=== PATIENT | male | born 1960 | race Caucasian/White ===

== ENCOUNTER 2018-02-16 03:46 | Observation (INO) ==
[2018-02-16] MEDS ORDERED: Morphine Inj 4 MG/ML Vial IV.PUSH ONE (03:49)
--- NOTE | 2018-02-16 04:02 | ED ---
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 Emigdio Aly. Primary care doctor is Dr. robert mccain. The patient states that he has had 11 stents to his heart. And that at approximately 2:30 in the morning he felt substernal chest pressure that radiated towards his left shoulder, and he rated at 10 out of 10, he took his own nitro Xanax and call 911. EMS upon arrival gave the patient additional nitro which decreased the pain down to currently which is 1 out of 10. MD complaint: chest pain Complete Quality Measures for STEMI Alert Patients STEMI Alert: No Onset (ago): hour(s) (2) Duration: improved Onset: during rest Pain location: substernal Severity: severe Severity scale (1-10): 10 (Initially rated at 10, currently rated a 1 out of 10) Quality: tightness and heaviness Pain radiation: LUE Relieving factors: nitroglycerin Exacerbating factors: nothing Treatments prior to arrival chest pain: aspirin and nitroglycerin Related Data Home Medications Medication Instructions Recorded Confirmed amlodipine 5 mg PO DAILY 02/16/18 02/16/18 atorvastatin 80 mg PO DAILY 02/16/18 02/16/18 clopidogrel 75 mg PO DAILY 02/16/18 02/16/18 lamotrigine 100 mg PO BID 02/16/18 02/16/18 lorazepam 0.5 mg PO PRN PRN 02/16/18 02/16/18 metoprolol succinate 50 mg PO DAILY 02/16/18 02/16/18 omeprazole 20 mg PO DAILY 02/16/18 02/16/18 quetiapine 100 mg PO BID 02/16/18 02/16/18 ticagrelor [Brilinta] 90 mg PO BID 02/16/18 02/16/18 Allergies Allergy/AdvReac Type Severity Reaction Status Date / Time No Known Allergies Allergy Unverified 02/16/18 03:50 Review of Systems ROS: all other systems reviewed are negative PMFSH History History Provided By: Patient Medical History Medical History Anxiety (Acute) HTN (hypertension) (Acute) Surgical History Surgical History Hx of heart artery stent (Acute) Social History Social History Substance History: No History of Abuse Smoking Status: Current some day smoker Tobacco Type: Cigarettes How Often Do You Have a Drink Containing Alcohol: Monthly or less Recent Travel in [facility] within the Last 8 Weeks: No Recent Out of Country Travel within the Last 8 Weeks: No Exam Narrative Exam Narrative: GENERAL: Well-nourished, well-developed patient in no apparent distress. SKIN: Warm and dry. HEAD: Atraumatic. Normocephalic. EYES: Pupils equal and round. No scleral icterus. No injection or drainage. ENT: No nasal bleeding or discharge. Mucous membranes pink and moist. NECK: Trachea midline. No JVD. CARDIOVASCULAR: Regular rate and rhythm. no rubs or gallops RESPIRATORY: No accessory muscle use. Clear to auscultation. Breath sounds equal bilaterally. GASTROINTESTINAL: Abdomen soft, non-tender, nondistended. No rebound or guarding MUSCULOSKELETAL: Extremities without clubbing, cyanosis, or edema. No obvious deformities. NEUROLOGICAL: Awake and alert. No obvious cranial nerve deficits. Motor grossly within normal limits. Five out of 5 muscle strength in the arms and legs. Normal speech. PSYCHIATRIC: Appropriate mood and affect; insight and judgment normal. Course Initial Documented Vital Signs Temperature 98.4 F 02/16/18 03:50 Pulse Rate 100 H 02/16/18 03:50 Respiratory Rate 20 02/16/18 03:50 Blood Pressure 135/73 02/16/18 03:50 Pulse Oximetry 98 02/16/18 03:50 Last Documented Vital Signs Temperature 98.4 F 02/16/18 03:50 Pulse Rate 100 H 02/16/18 03:50 Respiratory Rate 20 02/16/18 03:50 Blood Pressure 135/73 02/16/18 03:50 Pulse Oximetry 98 02/16/18 03:56 Medical Decision Making MDM Narrative Medical decision making narrative: No leukocytosis, no anemia, no abnormal platelet count, no left shift. First set of cardiac enzymes negative Normal electrolytes except for random glucose of 170 Normal liver and kidney functions Differential Diagnosis Differential Diagnosis: UT versus non-STEMI versus pneumonia versus pulmonary/ pleural effusion versus pneumothorax Lab Data Lab results reviewed: Yes I reviewed the patient's lab results. Result diagrams: 02/16/18 05:48 02/16/18 04:15 Lab Results 02/16/18 02/16/18 02/16/18 Range/Units 04:15 04:15 05:48 WBC 8.4 (4.0-11.0) th/mm3 RBC 4.80 (4.50-5.90) mil/mm3 Hgb 14.6 (13.0-17.0) gm/dL Hct 41.4 (39.0-51.0) % MCV 86.3 (80.0-100.0) fL MCH 30.5 (27.0-34.0) pg MCHC 35.4 (32.0-36.0) % RDW 13.5 (11.6-17.2) % Plt Count 271 (150-450) th/mm3 MPV 6.7 L (7.0-11.0) fL Neut % (Auto) 57.8 (16.0-70.0) % Lymph % (Auto) 26.0 (9.0-44.0) % [place] % (Auto) 14.0 H (0.0-8.0) % Eos % (Auto) 1.2 (0.0-4.0) % Baso % (Auto) 1.0 (0.0-2.0) % Neut # (Auto) 4.9 (1.8-7.7) th/mm3 Lymph # (Auto) 2.2 (1.0-4.8) th/mm3 [place] # (Auto) 1.2 H (0.0-0.9) th/mm3 Eos # (Auto) 0.1 (0.0-0.4) th/mm3 Baso # (Auto) 0.1 (0.0-0.2) th/mm3 WBC Differential . Differential Comment Auto diff final Sodium 140 (136-145) meq/L Potassium 3.5 (3.5-5.1) meq/L Chloride 106 (98-107) meq/L Carbon Dioxide 22.2 (21.0-32.0) meq/L Anion Gap 12 (5-15) meq/L BUN 12 (7-18) mg/dL Creatinine 1.09 (0.60-1.30) mg/dL Estimated GFR 69 L (>89) mL/min Random Glucose 170 H (74-106) mg/dL Calcium 8.8 (8.5-10.1) mg/dL Total Bilirubin 0.1 L (0.2-1.0) mg/dL AST 17 (15-37) U/L ALT 21 (12-78) U/L Alkaline Phosphatase 77 (45-117) U/L Total Creatine Kinase 94 (39-308) U/L Troponin I Less than 0.02 L (0.02-0.05) ng/mL Total Protein 7.2 (6.4-8.2) g/dL Albumin 3.3 L (3.4-5.0) g/dL Lipase Cancelled 154 Imaging Data My impression: Personally reviewed images and radiology report Radiologist's impression: Chest X-Ray 02/16/18 03:50 CONCLUSION: Negative examination. ECG Data EKG Prior to Arrival: No Attestation: I personally reviewed and interpreted this ECG as follows: Prior ECG tracings: not available for review Interpretation: Sinus tachycardia, 101 bpm, nonspecific ST-T wave changes, no acute ST elevation UT pattern noted Discharge Plan Discharge Disposition Patient Disposition: 30 Still Patient Discharge Condition Condition: Stable Discharge Details Diagnosis: Chest pain, rule out acute myocardial infarction Physicians Team ED Provider: Marco A Camacho Primary Care Provider: Blossom Hung Attending Provider: Mukesh Taylor Status ED Status: Admitted Observation Patient
--- NOTE | 2018-02-16 04:12 | XR ---
EXAM DATE: 02/16/2018 4:09 AM EDT AGE/SEX: 57 years / Male INDICATIONS: Chest pain. CLINICAL DATA: This is the patient's initial encounter. Patient reports that signs and symptoms have been present for 1 day and indicates a pain score of 8/10. MEDICAL/SURGICAL HISTORY: . Cardiovascular disease. Hypertension. Chronic obstructive pulmonary disease. Diabetes. None. COMPARISON: [facility] [place], CHEST SINGLE AP, 06/02/2016. . FINDINGS: A single AP view of the chest demonstrates the lungs to be symmetrically aerated without evidence of mass, infiltrate or effusion. The cardiomediastinal contours are unremarkable. Osseous structures a re intact. CONCLUSION: Negative examination. Electronically signed by: Reddy Clifford MD 02/16/2018 4:10 AM EDT
[2018-02-16 04:47] LABS: Alanine Aminotransferase 21 U/L (12-78)
[2018-02-16 05:02] LABS: Albumin 3.3 g/dL (3.4-5.0); Alkaline Phosphatase 77 U/L (45-117); Anion Gap 12 meq/L (5-15); Aspartate Aminotransferase 17 U/L (15-37); Blood Urea Nitrogen 12 mg/dL (7-18); Calcium 8.8 mg/dL (8.5-10.1); Carbon Dioxide 22.2 meq/L (21.0-32.0); Chloride 106 meq/L (98-107); Creatine Kinase 94 U/L (39-308); Glomerular Filtration Rate 69 mL/min (>89); Glucose,Random 170 mg/dL (74-106); Lipase 154 U/L (73-393); Potassium 3.5 meq/L (3.5-5.1); Sodium 140 meq/L (136-145); Total Protein 7.2 g/dL (6.4-8.2)
[2018-02-16 06:04] LABS: Baso # (Auto) 0.1 th/mm3 (0.0-0.2); Eos # (Auto) 0.1 th/mm3 (0.0-0.4); Eos % (Auto) 1.2 % (0.0-4.0); Hematocrit 41.4 % (39.0-51.0); Hemoglobin 14.6 gm/dL (13.0-17.0); Lymph # (Auto) 2.2 th/mm3 (1.0-4.8); Mean Corpuscular HGB Conc 35.4 % (32.0-36.0); Mean Corpuscular Hemoglobin 30.5 pg (27.0-34.0); Mean Corpuscular Volume 86.3 fL (80.0-100.0); Mean Platelet Volume 6.7 fL (7.0-11.0); Mono # (Auto) 1.2 th/mm3 (0.0-0.9); Neut # (Auto) 4.9 th/mm3 (1.8-7.7); Neut % (Auto) 57.8 % (16.0-70.0); Platelet Count 271 th/mm3 (150-450); Red Cell Distribution Width 13.5 % (11.6-17.2); White Blood Count 8.4 th/mm3 (4.0-11.0)
[2018-02-16] MEDS ORDERED: Morphine Inj 4 MG/ML Vial IV.PUSH PRN (06:06)
[2018-02-16] MEDS ORDERED: Sod Chloride 0.9% Inj 1,000 ML IV.CONT SCH (06:15)
[2018-02-16 06:27] LABS: INR 1.1 Ratio; Prothrombin Time 10.9 sec (9.8-11.6)
[2018-02-16 06:30] LABS: Activated Partial Thrombo Time 25.5 sec (24.3-30.1); D-Dimer 0.45 mg/L FEU (0.00-0.50)
[2018-02-16 08:45] LABS: Creatine Kinase 79 U/L (39-308)
[2018-02-16] MEDS ORDERED: Pantoprazole Sodium 20 MG DR Tablet PO SCH (09:00)
[2018-02-16] MEDS ORDERED: lamoTRIgine 100 MG Tablet PO SCH (09:00)
[2018-02-16] MEDS ORDERED: amLODIPine 5 MG Tablet PO SCH (09:00)
[2018-02-16] MEDS ORDERED: QUEtiapine 100 MG Tablet PO SCH (10:00)
[2018-02-16 10:10] VITALS: BP 129/88; RESP 18; TEMP 97.6
[2018-02-16 10:17] VITALS: O2SAT 96
--- NOTE | 2018-02-16 11:00 | P.HPCA ---
History of Present Illness Primary Care Physician: Blossom Hung DO History of Present Illness: This is a 57-year-old male with history of CAD with reported [address] Emigdio Aly that presents to ED with a complaint of a few episodes yesterday of a chest tightness lasted a seconds to about a minute at most. Nitro might have helped. It is not exertional related. Thought initially may been related to anxiety. States he has PTSD. Took a Xanax and then call 911. States it does not feel similar to when needing stents. Cannot recall being short of breath, nauseous, or diaphoretic. Currently denies chest discomfort. Patient has family history of CAD. Patient no longer smokes. States he quit a year ago prior that he smoked about a half pack of cigarettes a day for about 30 -35 years. - Diagnosis (1) Chest pain (2) CAD (coronary artery disease) (3) History of heart artery stent (4) Hypertension (5) Hyperlipidemia (6) History of posttraumatic stress disorder (PTSD) Review of Systems General: Patient denies fevers, chills, and recent travel. HEENT: Patient denies headache, sore throat, difficulty swallowing. Cardiovascular: Has the chest discomfort as mentioned above. Denies sensation of heart beating rapidly or irregularly. No syncope. Denies diaphoresis. Respiratory: Denies shortness of breath or inspirational chest discomfort. Denies coughing wheezing or hemoptysis. GI: Patient denies nausea, vomiting, diarrhea, abdominal pain, bloody stools. Musculoskeletal: Patient denies joint pain or edema. Denies calf pain or edema. Neurovascular: Patient denies numbness, tingling, weakness in extremities. Denies headache. Endocrine: Denies polyuria and polydipsia. Hematologic: Denies easy bruising. Skin: Denies rash or itching. PMFSH - History History Provided By: Patient - Medical History Medical History: Medical History (Last Reviewed 02/16/18 @ 06:26 by Marco A Camacho) Anxiety HTN (hypertension) - Surgical History Surgical History: Surgical History (Last Reviewed 02/16/18 @ 06:26 by Marco A Camacho) Hx of heart artery stent - Tobacco History Second Hand Smoke Exposure: No Tobacco Use In Past 30 Days: No Smoking Status: Former smoker Tobacco Type: Cigarettes - Alcohol History How Often Do You Have a Drink Containing Alcohol: Never - Substance Use History Substance History: No History of Abuse - Travel History Recent Travel in the [place] Within the Last 8 Weeks: No Recent Travel Out of the Country Within the Last 8 Weeks: No - Immunization History Tetanus Immunization: Unsure Hx Influenza Vaccine This Season: No Medications and Allergies Active Medications: Active Medications Amlodipine Besylate (Norvasc) 5 mg PO DAILY [facility] Atorvastatin Calcium (Lipitor) 80 mg PO DAILY [facility] Clopidogrel Bisulfate (Plavix) 75 mg PO DAILY [facility] Sodium Chloride (Ns Inj) 1,000 mls @ 100 mls/hr IV.CONT .Q10H [facility] Lamotrigine (Lamictal) 100 mg PO BID [facility] Metoprolol Succinate (Toprol Xl) 50 mg PO DAILY [facility] Morphine Sulfate (Morphine Inj) 2 mg IV.PUSH Q4H PRN PRN Reason: PAIN SCALE 8 TO 10 Nitroglycerin (Nitrostat Sl) 0.4 mg SL Q5M PRN PRN Reason: CHEST PAIN Pantoprazole Sodium (Protonix) 20 mg PO DAILY [facility] Quetiapine Fumarate (Seroquel) 100 mg PO BID [facility] Sodium Chloride (Ns Flush) 2 ml IV.FLUSH BID [facility] Sodium Chloride (Ns Flush) 2 ml IV.FLUSH PRN PRN PRN Reason: FLUSH AFTER USING IV ACCESS Allergies Allergy/AdvReac Type Severity Reaction Status Date / Time No Known Allergies Allergy Unverified 02/16/18 03:50 Home Medications Medication Instructions Recorded Confirmed Type amlodipine 5 mg PO DAILY 02/16/18 02/16/18 History atorvastatin 80 mg PO DAILY 02/16/18 02/16/18 History clopidogrel 75 mg PO DAILY 02/16/18 02/16/18 History lamotrigine 100 mg PO BID 02/16/18 02/16/18 History lorazepam 0.5 mg PO PRN PRN 02/16/18 02/16/18 History metoprolol succinate 50 mg PO DAILY 02/16/18 02/16/18 History omeprazole 20 mg PO DAILY 02/16/18 02/16/18 History quetiapine 100 mg PO BID 02/16/18 02/16/18 History ticagrelor [Brilinta] 90 mg PO BID 02/16/18 02/16/18 History Exam Vital signs: Vital Signs 02/16/18 03:50 02/16/18 03:55 02/16/18 03:56 Temperature 98.4 F Pulse Rate 100 H Respiratory Rate 20 Blood Pressure 135/73 Pulse Oximetry 98 97 98 02/16/18 07:00 02/16/18 10:08 02/16/18 10:14 Temperature 97.6 F Pulse Rate 80 77 Respiratory Rate 17 18 Blood Pressure 119/75 129/88 Pulse Oximetry 95 95 96 Intake & Output 02/15/18 02/16/18 02/16/18 18:59 06:59 18:59 Weight 74.843 kg Narrative: GENERAL: This is a well-nourished, well-developed patient, in no apparent distress. Patient speaks in clear complete sentences. Patient is pleasant. HEENT: Head is atraumatic and normocephalic. Neck is supple without lymphadenopathy and trachea is midline. No JVD or carotid bruits. CARDIOVASCULAR: Regular rate and rhythm without murmurs, gallops, or rubs. RESPIRATORY: Clear to auscultation. Breath sounds equal bilaterally. No wheezes , rales, or rhonchi. Chest wall is nontender. No use of accessory muscles. GASTROINTESTINAL: Abdomen is nontender, nondistended. Abdomen soft. No obvious pulsatile mass or bruit. No CVA tenderness. Strong femoral pulses bilaterally. Normal bowel sounds in all quadrants. MUSCULOSKELETAL: Patient is moving upper and lower extremities freely. No calf tenderness or edema, no Homans sign. Strong pulses in upper and lower extremities. NEUROLOGICAL: Patient is alert and oriented. Cranial nerves 2-12 are grossly intact. No focal deficits and speech is clear. SKIN: No rash and turgor is normal. Results 02/16/18 05:48 02/16/18 04:15 Cardiac Enzymes 02/16/18 02/16/18 02/16/18 Range/Units 04:15 05:48 07:10 AST 17 (15-37) U/L Troponin I Less than 0.02 L Less than 0.02 L (0.02-0.05) ng/mL B-Natriuretic Peptide 8 (0-100) pg/mL Coagulation 02/16/18 02/16/18 Range/Units 05:48 05:48 PT 10.9 (9.8-11.6) sec APTT 25.5 (24.3-30.1) sec B-Natriuretic Peptide 8 (0-100) pg/mL CBC 02/16/18 Range/Units 05:48 WBC 8.4 (4.0-11.0) th/mm3 RBC 4.80 (4.50-5.90) mil/mm3 Hgb 14.6 (13.0-17.0) gm/dL Hct 41.4 (39.0-51.0) % Plt Count 271 (150-450) th/mm3 Neut # (Auto) 4.9 (1.8-7.7) th/mm3 Lymph # (Auto) 2.2 (1.0-4.8) th/mm3 [place] # (Auto) 1.2 H (0.0-0.9) th/mm3 Eos # (Auto) 0.1 (0.0-0.4) th/mm3 Baso # (Auto) 0.1 (0.0-0.2) th/mm3 Comprehensive Metabolic Panel 02/16/18 Range/Units 04:15 Sodium 140 (136-145) meq/L Potassium 3.5 (3.5-5.1) meq/L Chloride 106 (98-107) meq/L Carbon Dioxide 22.2 (21.0-32.0) meq/L BUN 12 (7-18) mg/dL Creatinine 1.09 (0.60-1.30) mg/dL Calcium 8.8 (8.5-10.1) mg/dL AST 17 (15-37) U/L ALT 21 (12-78) U/L Alkaline Phosphatase 77 (45-117) U/L Total Protein 7.2 (6.4-8.2) g/dL Albumin 3.3 L (3.4-5.0) g/dL Intake and Output 02/15/18 02/16/18 02/16/18 22:59 06:59 14:59 Other: Weight 74.843 kg EKG interpretations - EKG EKG shows: tachycardia (Initial EKG sinus tachycardia rate [address] segment depressions but nonspecific T-wave changes. Second EKG sinus rhythm with rate of 89 with nonspecific T-wave changes.), sinus rhythm Caprini VTE Risk Assessment Caprini VTE Risk Assessment: No/Low Risk (score <= 1) Caprini Risk Assessment Model: Point Value = 1 Point Value = 2 Point Value = 3 Point Value = 5 Age 41-60 Minor surgery BMI > 25 kg/m2 Swollen legs Varicose veins or History of unexplained or recurrent spontaneous Oral contraceptives or hormone replacement Sepsis (< 1 month) Serious lung disease, including pneumonia (< 1 month) Abnormal pulmonary function Acute myocardial infarction Congestive heart failure (< 1 month) History of inflammatory bowel disease Medical patient at bed rest Age 61-74 Arthroscopic surgery Major open surgery (> 45 min) Laparoscopic surgery (> 45 min) Malignancy Confined to bed (> 72 hours) Immobilizing plaster cast Central venous access Age >= 75 History of VTE Family history of VTE Factor V Leiden Prothrombin [id number] Lupus anticoagulant Anticardiolipin antibodies Elevated serum homocysteine Heparin-induced thrombocytopenia Other congenital or acquired thrombophilia Stroke (< 1 month) Elective arthroplasty Hip, pelvis, or leg fracture Acute spinal cord injury (< 1 month) Prophylaxis Regimen: Total Risk Factor Score Risk Level Prophylaxis Regimen 0-1 Low Early ambulation 2 Moderate Order ONE of the following: *Sequential Compression Device (SCD) *Heparin 5000 units SQ BID 3-4 Higher Order ONE of the following medications: *Heparin 5000 units SQ TID *Enoxaparin/Lovenox 40 mg SQ daily (WT < 150 kg, CrCl > 30 mL/min) *Enoxaparin/Lovenox 30 mg SQ daily (WT < 150 kg, CrCl > 10-29 mL/min) *Enoxaparin/Lovenox 30 mg SQ BID (WT < 150 kg, CrCl > 30 mL/min) AND/OR *Sequential Compression Device (SCD) 5 or more Highest Order ONE of the following medications: *Heparin 5000 units SQ TID (Preferred with Epidurals) *Enoxaparin/Lovenox 40 mg SQ daily (WT < 150 kg, CrCl > 30 mL/min) *Enoxaparin/Lovenox 30 mg SQ daily (WT < 150 kg, CrCl > 10-29 mL/min) *Enoxaparin/Lovenox 30 mg SQ BID (WT < 150 kg, CrCl > 30 mL/min) AND *Sequential Compression Device (SCD) Assessment and Plan - Assessment (1) Chest pain Code(s): R07.9 - Chest pain, unspecified Status: Acute (2) CAD (coronary artery disease) Code(s): I25.10 - Atherosclerotic heart disease of [place] coronary artery without angina pectoris Status: Acute (3) History of heart artery stent Code(s): Z95.5 - Presence of coronary angioplasty implant and graft Status: Acute (4) Hypertension Code(s): I10 - Essential (primary) hypertension Status: Acute (5) Hyperlipidemia Code(s): E78.5 - Hyperlipidemia, unspecified Status: Acute (6) History of posttraumatic stress disorder (PTSD) Code(s): Z86.59 - Personal history of other mental and behavioral disorders Status: Acute - Plan * Chest pain: Patient's symptoms seem atypical. He has had cardiac enzymes for ruling out purposes. He was seen by Dr. Mukesh Taylor of cardiology in the chest pain center. Dr. Taylor spoke with Dr. Emigdio Aly regarding this patient as well. This time patient will have a Lexiscan. Patient will be discharged home if stress test is nonischemic with instructions to follow-up with PCP. 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 Return to ED for interval issues. * History of CAD with stents: Patient to follow-up with breaker boss. Resume medications. Stress test pending. * Hypertension: Continue medication. * Hyperlipidemia: Continue medication. Patient is stable at this time. He is agreeable to this plan. H&P: Quality - VTE Deep Vein Thrombosis/Pulmonary Embolism Present on Admission: Yes
[2018-02-16 11:14] VITALS: PULSE 75
[2018-02-16] MEDS ORDERED: Regadenoson Inj 0.4 MG/5 ML Syringe IV.PUSH ONE (13:07)
--- NOTE | 2018-02-16 14:33 | NM ---
EXAM DATE: 02/16/2018 2:24 PM EDT AGE/SEX: 57 years / Male INDICATIONS:. . Angina. CLINICAL DATA: This is the patient's subsequent encounter. Patient reports that signs and symptoms h ave been present for 1 day and indicates a pain score of 10/10. MEDICAL/SURGICAL HISTORY: Hypertension. Anxiety. Coronary artery stent. COMPARISON: [facility], MYOCARDIAL PERF PHARM SPECT, 06/03/2016. . DOSE: 8.3 mCi Tc 99m Myoview at rest 27.5 mCi [id number] at stress 0.4 mg Lexiscan STRESS SYMPTOMS: Dyspnea and burning in chest. EJECTION FRACTION: >70 % TECHNIQUE: The patient underwent pharmacologic stress with infusion of prescribed dose. Continuous ECG tracing was monitored during stress. Gated SPECT imaging was performed after stress and conventi onal SPECT imaging was performed at rest. The examination was performed on a SPECT/CT scanner, both attenuation and non-corrected datasets were reviewed. FINDINGS: Distribution: The maximum perfused segment at stress is in the anterolateral wall. Perfusion Study: The pattern of perfusion at stress is within normal limits. Gated Study: There are intact wall motion and wall thickening without hypokinetic or dyskinetic segm ents. The ejection fraction is calculated at >70%. RISK CATEGORY: Low (<1% Annual Motality Rate) CONCLUSION: 1. No scintigraphic findings of ischemia. 2. Excellent wall motion throughout been estimated ejection fraction of greater than 70%. Electronically signed by: Gagan Kennedy MD 02/16/2018 2:32 PM EDT
--- NOTE | 2018-02-17 08:50 | ECG ---
Date Performed: 02/16/2018 Time Performed: 07:18:08 PTAGE: 57 years EKG: Sinus rhythm MARKED LEFT AXIS DEVIATION ABNORMAL ECG PREVIOUS TRACING : 02/16/2018 03.54 Since previous tracing, no significant change noted DOCTOR: Mukesh Taylor Interpretating Date/Time 02/17/2018 08:49:25
--- NOTE | 2018-02-17 08:51 | ECG ---
Date Performed: 02/16/2018 Time Performed: 03:54:41 PTAGE: 57 years EKG: SINUS TACHYCARDIA LOW QRS VOLTAGE IN PRECORDIAL LEADS PREVIOUS TRACING : 06/03/2016 04.12 Since previous tracing, no significant change noted DOCTOR: Mukesh Taylor Interpretating Date/Time 02/17/2018 08:50:21
--- NOTE | 2018-02-17 14:46 | TR ---
Date Performed: 02/16/2018 Time Performed: 12:54:18 DOCTOR: Mukesh Taylor DRUG LIST: CLINICAL HISTORY: ANGINA REASON FOR TEST: Angina REASON FOR ENDING: OBSERVATION: CONCLUSION: COMMENTS: Lexiscan stress test was performed under standard four minute protocol. Radionuclide was injected one minute prior to ending the test. No electrocardiographic abormalities were present t o suggest ischemia. Nuclear imaging and interpretation are pending.
== END 2018-02-16 18:09 | disposition home or self-care (01) ==
LOC: NEPC 03:46 → NEDA 03:46 → NEPGCP 03:46
PROVIDERS: ADMIT Internal Medicine Cardiovascular Disease; ATTEND Internal Medicine Cardiovascular Disease